=== PATIENT | female | born 1945 | race Caucasian/White ===

== ENCOUNTER → 2018-02-03 09:49 | Outpatient (CLI) | payer MEDICARE, OTHER ==
[~2018-02-03] VITALS: Ht 154.9 cm; Wt 68.2 kg
--- NOTE | ~2018-02-03 | HEMODYNAMI ---
PATIENT:YOU BETTENCOURT MEDICAL RECORD: [id number] : 45 LOCATION:[facility] ADMISSION DATE: 02/03/18 Generatedon:02/03/201813:18 Patient name: YOU BETTENCOURT Patient #: [id number] SSN: : 1945 Date of study: 02/03/2018 Page: Of Hemodynamic Procedure Report Patient Data Patient Demographics Procedure consent was obtained First Name: YOU Gender: Female Last Name: RUT : 1945 [facility] Initial: SUZANNE Age: 72 year(s) Patient #: [id number] Race: Unknown Additional ID: [id number] Contact details [address]: [address] [place] [address] State: [place] City: [place] Zip code: [address] Past Medical History Allergies Allergen Reaction Date Comments Reported Other allergy 02/03/2018 JOANNA KAUR Admission Admission Data Admission Date: 02/03/2018 Admission Time: 9:49 Lab Results Lab Result Date: 02/03/2018 Lab Result Time: 0:00 Biochemistry Name Units Result Min Max BUN mg/dl 17 --(---*)-- 7 18 Creatinine mg/dl 1.2 --(---*)-- 0.6 1.3 CBC Name Units Result Min Max Hemoglobin g/dl 13.5 --(*---)-- 13.5 17.5 Procedure Procedure Types Cath Procedure Diagnostic Procedure [facility] w/Coronaries Sedation Charges Moderate Sedation up to 15 minutes Procedure Description Procedure Date Procedure Date: 02/03/2018 Procedure Start Time: 13:04 Procedure End Time: 13:17 Procedure Staff Name Function Cuong Bullock MD Performing Physician Sonam Blackman RT Monitor Eliseo Eduardo RT Scrub Иван Yusuf RN Nurse Procedure Data Cath Procedure Fluoroscopy Diagnostic fluoroscopy Total fluoroscopy Time: 3.7 time: 3.7 min min Diagnostic fluoroscopy Total fluoroscopy dose: 492 dose: 492 mGy mGy Contrast Material Contrast Material Type Amount (ml) Isovue 300 74 Entry Location Entry Primary Successful Side Size Upsize Upsize Entry Closure Barr ccessful Closure Location (Fr) 1 (Fr) 2 (Fr) Remarks Device Remarks Radial Right 6 Fr Mechanical artery Short Compression Estimated blood loss: 5 ml Diagnostic catheters Device Type Used For End Catheter Placement DIAGNOSTIC Alfredo 110cm Procedure 5Fr catheter ([id number]) Procedure Complications No complications Procedure Medications Medication Administration Route Dosage 0.9% NaCl I.V. 100 ml/hr Oxygen NC 2 l/min Heparin Flush Bag added to field 2 bags (1000units/500ml NS) Lidocaine 2% added to field 20 Radial Cocktail added to field 1 syringe (Verapomil 2mg/Nitro 400mcg/Heparin 1500units) Versed I.V. 2 mg Fentanyl I.V. 100 mcg Versed I.V. 0.5 mg Radial Cocktail I.A. 1 syringe (Verapomil 2mg/Nitro 400mcg/Heparin 1500units) Hemodynamics Rest HGB: 13.5 (g/dl) Heart Rate: 78 (bpm) Pressure Samples Time Site Value (mmHg) Purpose Heart Use Rate(bpm) 13:08 LV 146/-3,11 Snapshot 72 13:09 AO 145/65(97) Pullback 111 13:09 LV 109/23,10 Pullback 111 Gradients Valve Time Site 1 Site 2 Mean SEP/DFP Peak To Heart Use (mmHg) (sec/min) Peak Rate (mmHg) (bpm) Aortic 13:09 LV AO 0 111 109/23,10 145/65(97) Calculations Valve P-P Mean Valve Index Valve Source Name Gradient Area Flow (cm2) Aortic 0 0 Snapshots Pre Cath Intra NCS Post Cath Vital Signs Time Heart Resp SPO2 etCO2 NIBP (mmHg) Rhythm Pain Sedation Rate (ipm) (%) (mmHg) Status Level (bpm) 12:49:37 78 16 97 29.5 137/61(93) NSR 0 (11) 10(A) , No pain 12:54:21 74 12 96 33.3 131/52(99) NSR 0 (11) 10(A) , No pain 12:59:06 77 15 97 34.1 131/60(101) NSR 0 (11) 10(A) , No pain 13:03:51 79 13 96 31.8 133/59(84) NSR 0 (11) 10(A) , No pain 13:08:37 130 14 99 31 103/50(71) NSR 0 (11) 9(A) , No pain 13:13:16 77 15 92 0 113/52(83) NSR 0 (11) 9(A) , No pain Medications Time Medication Route Dose Verified Delivered Reason Notes Effectiveness by by 12:48:56 0.9% NaCl I.V. 100 Иван Иван Per ml/hr Paramjit Yusuf physician RN RN 12:49:05 Oxygen NC 2 l/min Иван Иван for Lorigan Lorigan arrhythmia RN RN 12:49:16 Heparin Flush added 2 bags Иван Иван used for Bag to Lorigan Lorigan procedure (1000units/500ml field RN RN NS) 12:49:27 Lidocaine 2% added 20ml Иван Иван for local to vial Lorigan Lorigan anesthetic field RN RN 12:49:48 Radial Cocktail added 1 Иван Иван used for (Verapomil to syringe Lorigan Lorigan procedure 2mg/Nitro field RN RN 400mcg/Heparin 1500units) 12:59:58 Versed I.V. 2 mg Иван Иван for sedation Paramjit Yusuf RN RN 13:00:08 Fentanyl I.V. 100 mcg Иван Иван for sedation Lornida Yusuf RN RN 13:05:33 Versed I.V. 0.5 mg Иван Иван for sedation Paramjit Yusuf RN RN 13:06:15 Radial Cocktail I.A. 1 Иван Cuong for (Verapomil syringe Paramjit Bullock MD vasodilation 2mg/Nitro RN 400mcg/Heparin 1500units) Procedure Log Time Note 12:14:37 Plan of Care:Hemodynamics will remain stable., Cardiac rhythm will remain stable., Comfort level will be maintained., Respiratory function will remain adequate., Patient/ family verbilizes understanding of procedure., Procedure tolerated without complication., Recovers from procedure without complications.. 12:14:39 Time tracking: Regular hours 12:14:40 Signed procedure consent form obtained from patient. 12:14:58 H&P Date Dictated: 01/20/2018 Within 30 days and on chart., H&P Addendum completed by physician on day of procedure. (MUST COMPLETE FOR ALL OUTPATIENTS). 12:15:14 Patient allergic to Other allergyCODEINE, PCN 12:16:46 Lab Result : Creatinine 1.2 mg/dl 12:16:46 Lab Result : BUN 17 mg/dl 12:16:46 Lab Result : Hemoglobin 13.5 g/dl 12:33:10 Eliseo Jayce RT(R) sent for patient. Start room use. 12:38:49 Patient received from Pre/Post Procedure Room to CCL 1 Alert and oriented. Tansferred to table in Supine position. 12:38:50 Warm blankets applied, and avi hugger turned on for patient comfort. 12:38:51 Correct patient and procedure confirmed by team. 12:38:53 ECG and BP/O2 sat monitors applied to patient. 12:48:44 Vital chart was started 12:48:45 Baseline sample Acquired. 12:48:52 Rhythm: sinus rhythm 12:48:53 Full Disclosure recording started 12:48:55 Pre-procedure instructions explained to patient. 12:48:55 Pre-op teaching completed and patient verbalized understanding. 12:48:56 0.9% NaCl 100 ml/hr I.V. was administered by Иван Yusuf RN; Per physician; 12:48:58 Family in patients room. 12:49:05 Oxygen 2 l/min NC was administered by Иван Yusuf RN; for arrhythmia; 12:49:16 Heparin Flush Bag (1000units/500ml NS) 2 bags added to field was administered by Иван Yusuf RN; used for procedure; 12:49:27 Lidocaine 2% 20ml vial added to field was administered by Иван Yusuf RN; for local anesthetic; 12:49:31 Is patient on blood thinner?No 12:49:32 Patient diabetic? No. 12:49:34 Patient not . Patient has had hysterectomy. 12:49:38 Previous problem with sedation/anesthesia? No ? 12:49:39 Snore? No 12:49:40 Sleep apnea? No 12:49:42 Deviated septum? No 12:49:43 Opens mouth fully? Yes 12:49:46 Airway obstruction? No ? 12:49:47 Sticks out tongue? Yes 12:49:48 Radial Cocktail (Verapomil 2mg/Nitro 400mcg/Heparin 1500units) 1 syringe added to field was administered by Иван Yusuf RN; used for procedure; 12:49:57 Dentures? Yes PARTIALS IN TIGHT 12:50:00 Modified Corona's test Ulnar < 7 seconds 12:50:05 Patient pain scale 0/10 ?. 12:50:12 IV patent on arrival in left wrist with 0.9% NaCl at [facility]. 12:50:16 Lab results completed and on chart. 12:50:18 Right Radial & Right Groin area was prepped with chlora-prep and draped in sterile fashion 12:50:19 Alarms reviewed by R. N. 12:50:20 Sharps counted by scrub and verified by R.N. 12:50:38 Use device set Radial Dx or PCI 12:50:39 ACIST Syringe (60109) opened to sterile field. 12:50:41 Tegaderm 4 x 4 (1626W) opened to sterile field. 12:50:42 ACIST Manifold (49368) opened to sterile field. 12:50:42 ACIST Hand Control (43228) opened to sterile field. 12:50:44 Bag Decanter (2002S) opened to sterile field. 12:50:45 Medline Cath Pack ([id number]) opened to sterile field. 12:50:45 SHEATH 6FR Slender ([id number]) opened to sterile field. 12:50:46 DIAGNOSTIC WIRE .035 260cm J wire (719046) opened to sterile field. 12:50:47 MBrace Wrist Support ([id number]) opened to sterile field. 12:50:47 NEEDLE Cook 21G 4cm Radial ([id number]) opened to sterile field. 12:59:06 --------ALL STOP TIME OUT------ 12:59:07 Final Timeout: patient, procedure, and site verified with staff and physician. All members of the team are in agreement. 12:59:08 Right Radial & Right Groin site verified by team. 12:59:16 Physical assessment completed. ASA score P 2 - A patient with mild systemic disease as per Cuong Bullock MD. 12:59:20 Sedation plan: IV Moderate Sedation Medication:Versed, Fentanyl 12:59:58 Versed 2 mg I.V. was administered by Иван Yusuf RN; for sedation; 13:00:08 Fentanyl 100 mcg I.V. was administered by Иван Yusuf RN; for sedation; 13:03:50 Procedure started. 13:03:52 Zero performed for pressure channel P1 13:04:31 Local anesthetic to right radial artery with Lidocaine 2% by Cuong Bullock MD.INITIAL ACCESS ONLY 13:05:33 Versed 0.5 mg I.V. was administered by Иван Yusuf RN; for sedation; 13:05:59 A 6 Fr Short sheath was inserted into the Right Radial artery 13:06:15 Radial Cocktail (Verapomil 2mg/Nitro 400mcg/Heparin 1500units) 1 syringe I.A. was administered by Cuong Bullock MD; for vasodilation; 13:06:32 A DIAGNOSTIC Alfredo 110cm 5Fr catheter ([id number]) was advanced over the wire and used for Procedure. 13:07:50 LV gram done using LAU 13:07:54 Injector settings: Ml/sec: 7, Volume: 15, 13:08:26 LV hemodynamics recorded. 13:09:05 EF : 55 % 13:09:24 RCA angiography performed. 13:10:31 LCA angiography performed. 13:13:55 Catheter removed. 13:14:05 TR BAND Standard ([id number]) opened to sterile field. 13:14:13 Procedure ended.(Physican Out) 13:14:27 Sheath removed intact; hemostasis achieved with Mechanical Compression to the Right Radial artery. 13:14:35 Fluoroscopy time 03.70 minutes. 13:14:39 Fluoroscopy dose: 492 mGy 13:14:39 Flurop Dose total: 492 13:14:42 Contrast amount:Isovue 300 74ml. 13:15:03 Sharps counted by scrub and verified by R.N. 13:15:06 TR band inflated with 11cc of air. 13:15:28 Insertion/operative site no bleeding no hematoma. 13:15:33 Post-procedure physical assessment completed. ASA score P 2 - A patient with mild systemic disease as per Cuong Bullock MD. 13:15:37 Post procedure rhythm: unchanged. 13:15:39 Estimated blood loss: 5 ml 13:15:40 Post procedure instruction explained to patient.Patient verbalizes understanding. 13:15:41 Patient needs reinforcement of post procedure teaching. 13:16:31 Procedure type changed to Cath procedure, Diagnostic procedure, LHC, LHC w/Coronaries, Sedation Charges, Moderate Sedation up to 15 minutes 13:17:12 Procedure and supply charges have been captured, reviewed, submitted and are correct. 13:17:14 Procedure Complication : No complications 13:17:16 Vital chart was stopped 13:17:17 See physician's report for complete and final results. 13:17:19 Report given to Pre/Post Procedure Room. 13:17:22 Patient transfered to Pre/Post Procedure Room with Bed. 13:17:25 Procedure ended. 13:17:25 Full Disclosure recording stopped 13:17:28 End room use (Document Last) Device Usage Item Name Manufacture Quantity Catalog Hospital Part Current Minima l Lot# / Number Charge Number Stock Stock Serial# Code ACIST Acist 1 06195 [id number] 928458 000337 20 Syringe Medical (41453) Systems Inc Tegaderm 4 x 3M 1 1626W 813448 908594 [id number] 5 4 (1626W) ACIST Acist 1 00513 480350 355131 167938 5 Manifold Medical (06780) Systems Inc ACIST Hand Acist 1 79188 900211 177430 851265 5 Control Medical (37381) Systems Inc Bag Decanter Microtek 1 2002S 947157 24999 165302 5 (2002S) Medical Inc. Medline Cath Cardinal 1 [id number] 849676 03620 531444 5 Banyan ([id number]) SHEATH 6FR Terumo 1 [id number] 649963 141115 483845 40 Slender ([id number]) DIAGNOSTIC [place] 1 767551 212468 464800 357129 30 WIRE .035 260cm J wire (978284) MBrace Wrist Advanced 1 140-0250-00 475595 25214 806441 5 Support Vascular ([id number]) Dynamics NEEDLE Cook [employer] 1 W02455 683140 038426 208305 5 21G 4cm Radial (N49295) DIAGNOSTIC Terumo 1 40-8036 832476 892118 924899 5 Alfredo 110cm 5Fr catheter (929711) TR BAND Terumo 1 [id number] 710990 512218 115848 40 Standard ([id number]) Signature Audit [place] Stage Time Signature Unsigned Intra-Procedure 02/03/2018 Sonam Blackman 1:17:56 PM RT(R) Signatures Monitor : Sonam Blackman Signature : RT Date : Time : [address] [place] [address]
[~2018-02-03 09:49] MED LIST: ASPIRIN325 MG PO; BACTRIM DS TABL1 TAB PO; DOCUSATE SODIUM/SENN PO; EEMT PO; IBUPROFEN800 MG PO; K-DUR20 MEQ PO; LASIX INJ40 MG/4 ML PO; LEVAQUIN500 MG PO; NORVASC10 MG PO; TIROSINT137 MCG PO; ULTRAM50 MG PO; WELLBUTRIN XL150 M1 PO; ZOFRAN8 MG PO
[2018-02-03 10:12] VITALS: BP 151/60; Ht 154.9 cm; Wt 68.2 kg
[2018-02-03 10:31] LABS: ANION GAP 17.6 mmol/L (8-16); CALCIUM 8.7 mg/dL (8.5-10.1); CARBON DIOXIDE 23.9 mmol/L (21.0-32.0); CREATININE - SERUM 1.2 mg/dL (0.6-1.3); POTASSIUM - SERUM 3.5 mmol/L (3.5-5.1)
[2018-02-03 10:35] LABS: BASOPHILS 0.3 % (0-2); EOSINOPHILS 5.7 % (0-7); HEMATOCRIT 40.4 % (36.0-48.0); HEMOGLOBIN 13.5 g/dL (12-16); IMMATURE GRANULOCYTES 0.2 % (0-5); MCH 29.9 pg (26.0-34.0); MCHC 33.4 g/dL (31.0-37.0); MCV 89.6 fL (80.0-100.0); MEAN PLATELET VOLUME 9.8 fL (7.4-10.4); NEUTROPHILS 53.8 % (40-80); PLATELET COUNT 284 10x3/uL (130-400); RBC 4.51 10x6/uL (4.00-5.40); WBC 9.9 10x3/uL (4.8-10.8)
== END | disposition home or self-care (01) ==
LOC: D.CATH 09:49
PROVIDERS: Internal Medicine Cardiovascular Disease
DX: I20.9 Angina pectoris, unspecified (principal); R94.39 Abnormal result of other cardiovascular function study; Z01.812 Encounter for preprocedural laboratory examination

== ENCOUNTER → 2019-08-04 12:15 | Outpatient (CLI) | payer MEDICARE, OTHER ==
[2018-02-03 10:12] VITALS: BMI 28.4
== END | disposition home or self-care (01) ==
LOC: D.LAB 12:15
PROVIDERS: ATTEND Family Medicine
DX: R06.09 Other forms of dyspnea (principal)

== ENCOUNTER → 2019-08-24 11:16 | Outpatient (CLI) | payer MEDICARE, OTHER ==
[2018-02-03 10:12] VITALS: BMI 28.4
== END | disposition home or self-care (01) ==
LOC: D.HCCECHO 11:16
PROVIDERS: ATTEND Internal Medicine Cardiovascular Disease
DX: R06.00 Dyspnea, unspecified (principal)